=== PATIENT | female | born 1940 | race Caucasian/White ===

== ENCOUNTER 2020-08-03 14:20 | Inpatient (IN) | payer OTHER ==
[2020-08-03] VITALS (26 sets, daily range): BP systolic 56–107; BP diastolic 27–70
[~2020-08-03] VITALS: Ht 170.2 cm; Wt 58.4 kg
--- NOTE | ~2020-08-03 | EMS ---
[address] [address] EMS Patient Care Report Name: SANDRA PIERRE Room #: REG BALDEV Dudley#: [id number] Admission: 08/03/20 Attend Phys: Discharge: Date of : 38 Report #: [id number] THIS REPORT FOR: //name// Report Transmitted: 08/03/2020 15:15 EMS Care Summary [facility] MED-ACT Incident [id number] @ 08/03/2020 13:29 Incident Location [address] [place] [address] Patient SANDRA PIERRE Female, 80 Years 1940 Patient Address [address] [place] [address] Patient History Hypertension (HTN),Stroke/CVA,Parkinson's Disease,Pneumonia,Novel Coronavirus (COVID-19), Patient Allergies No known allergies, Patient Medications Simvastatin, Alprazolam, ASA, Carvedilol, Lisinopril, Chief Complaint "her BP is low and she is not responding normally" Disposition Transported No Lights/[place] Reason Breathing Problem Transported To [facility] Narrative Arrive at a shelter to find the pt laying supine in her bed being assessed by S47 with staff in the room. Staff reports that the pt is here to recover [facility] [address] [place] [address] EMS Patient Care Report Name: SANDRA PIERRE Room #: REG Luis Enrique#: [id number] Admission: 08/03/20 Attend Phys: Discharge: Date of : 38 Report #: [id number] from covid 19. They say that the pt got covid 19 before arriving at this facility which was the 18 of July. Staff does not know the exact date that the pt contracted the virus. Staff says that the pt's stroke left her with some disabilities and she normally will say some words but she is not oriented to person place and time. Staff says that last night the pt became much less responsive and her BP was lower than normal. Staff says that they were able to get a BP of 78 systolic so they called 911. Staff says that the pt just had a massive BM that they cleaned up just prior to EMS arrival. VS, exam, ECG and 12 lead done. Pt is on O2 at 2LPM and she is transferred to EMS O2 at 4LPM. Pt moved to cot and secured and taken to ambulance. IV started with fluid bolus. BG and temp also taken. Pt's eye's are spontaneously open but not reactive. Pt not responding to verbal or sternal rub. She is breathing rapidly at about 40 breaths per minute. VS and ECG monitored and biocom to [facility] with no orders. Tx without incident. Pt taken to ER room 11 and report to RN and MD at bedside and care transferred. Initial Vitals @13:44P: 116,UT Suspected: false @14:10P: 113,R: 40,GCS: 6,Glucose: 197,SpO2: 93, @13:44P: 100,R: 40,GCS: 6,Temp: 98.1F,SpO2: 93,UT Suspected: false Assessments @14:00MENTAL:SKIN:Cold,HEENT:Eyes: Left Pupil: 3-mm,Eyes: Right Pupil: 3-mm,Head/Face: No Abnormalities,Neck/Airway: No Abnormalities,LUNG SOUNDS:General: Diarrhea,ABDOMEN:General: Diarrhea,PELVIS//GI:EXTREMITIES:Left Leg: Edema,Right Leg: Edema,Left Arm: No Abnormalities,Right Arm: No Abnormalities,PULSE:NEURO:No Abnormalities, Impression Hypotension Procedures @14:00Normal Saline (.9% NaCl) 250cc (22 ga) Site: Hand-RightResponse: UnchangedSucceeded@13:4412-Lead ECGResponse: UnchangedSucceeded Timeline 13:27,Call Received 13:27,Psap Call 13:29,Dispatched 13:30,En Route 13:37,On Scene 13:40,At Patient 13:44,BP: / M,PULSE: 100,RR: 40 R,SPO2: 93 Ox,ETCO2: ,BG: ,PAIN: ,GCS: 6, 13:44,12-Lead ECG,Response: UnchangedSucceeded, [facility] [address] [place] [address] EMS Patient Care Report Name: SANDRA PIERRE Room #: REG Luis Enrique#: [id number] Admission: 08/03/20 Attend Phys: Discharge: Date of : 38 Report #: [id number] 13:44,BP: / M,PULSE: 116,RR: R,SPO2: Ox,ETCO2: ,BG: ,PAIN: ,GCS: , 14:00,Normal Saline (.9% NaCl) 250cc 22 ga Site: Hand-Right,Response: UnchangedSucceeded, 14:04,Depart Scene 14:10,BP: / M,PULSE: 113,RR: 40 R,SPO2: 93 Ox,ETCO2: ,B,PAIN: ,GCS: 6, 14:13,At Destination 14:37,Call Closed Disclaimer v1.1 Copyright 2020 [employer] This EMS Care Summary contains data elements from the applicable legal record (which may be displayed differently). It is designed to provide pertinent information for the following purposes: continuity of care, clinical quality, and state data reporting. The complete legal record is available to ED staff and administrators of the receiving hospital in [email or web address]'s Patient Tracker. All data is provided "as is."
[2020-08-03 14:51] LABS: URINE BILIRUBIN NEGATIVE (Negative); URINE BLOOD 2+ (Negative); URINE CLARITY SL CLOUDY; URINE COLOR YELLOW; URINE GLUCOSE-RANDOM* NEGATIVE (Negative); URINE KETONES NEGATIVE (Negative); URINE NITRITE-REFLEX NEGATIVE (Negative); URINE PROTEIN (DIPSTICK) TRACE (Negative); URINE UROBILINOGEN 0.2 E.U./dl (0.2-1.0)
[2020-08-03 14:55] LABS: URINE LEUKOCYTES-REFLEX 3+ (Negative)
[2020-08-03 15:00] LABS: BE(vivo) -13.1 mmol/L (-2 to +3); HCO3 11.3 mmol/L (22.0-26.0); sO2 75.9 % (92.0-98.0)
[2020-08-03 15:01] LABS: PCO2 22.3 mmHg (35.0-45.0); PO2 42.6 mmHg (80.0-100.0); pH 7.321 (7.360-7.450)
[2020-08-03 15:08] LABS: BACTERIA-REFLEX 1-9 Few /HPF (None Seen); CRYSTALS None Seen /LPF (None Seen); FINE GRANULAR CASTS 0-3 Few /LPF (None Seen); MUCUS 4-6 Moderate strn/LPF (None Seen); SQUAMOUS >10 Many /LPF (0-3); URINE WBC-REFLEX >25 Many /HPF (0-5)
[2020-08-03 15:09] LABS: WBC CLUMPS Many (None Seen)
[2020-08-03 15:21] LABS: BE(vivo) -6.6 mmol/L (-2 to +3); HCO3 18.1 mmol/L (22.0-26.0); PCO2 33.3 mmHg (35.0-45.0); PO2 164.8 mmHg (80.0-100.0); pH 7.352 (7.360-7.450)
[2020-08-03] MEDS ORDERED: CLOPIDOGREL75 MG PO (15:38)
[2020-08-03] MEDS ORDERED: CARBIDOPA-LEVO1 EAC9 PO (15:39)
[2020-08-03] MEDS ORDERED: ATORVASTATIN CA80 MG PO (15:39)
[2020-08-03 16:15] LABS: ABSOLUTE NEUTROPHILS 13.6 thou/uL (1.4-8.2); RBC 4.02 mil/uL (4.20-5.00)
[2020-08-03 16:18] LABS: BASOPHILS 0.3 % (0.0-2.0); EOSINOPHILS 0.5 % (0.0-3.0); HEMOGLOBIN 11.4 gm/dL (12.0-15.0); LYMPHOCYTES 6.9 % (24.0-44.0); MCH 28.4 pg (26.0-34.0); MCHC 30.9 g/dL (28.0-37.0); MONOCYTES 8.6 % (1.0-8.0); PLATELET COUNT 213 thou/uL (150-400); POLYS 83.7 % (36.0-66.0); RDW 15.8 % (10.5-14.5); WBC 16.3 thou/uL (4.0-11.0)
[2020-08-03 16:25] LABS: CALCIUM 7.3 mg/dL (8.5-10.1); CREATININE 4.6 mg/dL (0.6-1.0); POTASSIUM 4.6 mmol/L (3.5-5.1)
--- NOTE | 2020-08-03 16:32 | NUR ---
CONSULTED TO PLACE A CENTRAL LINE FOR A PATIENT WITH LOW B/P AND AMS IN ER. VERBAL ORDER AND CONSENT PER MEDICAL NECESSITY. THE PATIENT DOES NOT RESPOND TO TEACHING. THE RIGHT IJ WAS WIDLEY PATENT. A #6F TRIPLE LUMEN CENTRAL LINE WAS PLACED PER HOSPITAL POLICY AFTER A BEDSIDE TIMEOUT WAS COMPLETED. THE 25CM LINE ADVANCED WITHOUT DIFFICULTY. A STAT CHEST XRAY CONFIRMED LINE IN ADEQUATE POSITION- LINE RELEASED FOR USE
[2020-08-03 16:36] LABS: DIRECT BILIRUBIN 0.2 mg/dL (<0.1-0.2); MAGNESIUM 2.6 mg/dL (1.8-2.4); PHOSPHORUS 6.1 mg/dL (2.6-4.7); TOTAL BILIRUBIN 0.7 mg/dL (0.2-1.0)
[2020-08-03 16:38] LABS: TROPONIN-I 0.79 ng/mL (<0.06)
[2020-08-03 17:27] LABS: URINE BILIRUBIN NEGATIVE (Negative); URINE BLOOD TRACE (Negative); URINE CLARITY CLEAR; URINE COLOR YELLOW; URINE GLUCOSE-RANDOM* NEGATIVE (Negative); URINE KETONES NEGATIVE (Negative); URINE LEUKOCYTES-REFLEX NEGATIVE (Negative); URINE NITRITE-REFLEX NEGATIVE (Negative); URINE PROTEIN (DIPSTICK) NEGATIVE (Negative); URINE UROBILINOGEN 0.2 E.U./dl (0.2-1.0)
[2020-08-03] MEDS ORDERED: SIMVASTATIN40 MG PO (19:16)
[2020-08-03] MEDS ORDERED: ALENDRONATE SOD35 MG PO (19:27)
--- NOTE | 2020-08-03 20:00 | NUR ---
Pt admitted to ICU room 242 from ED at 1945. Pt very lethargic, moans and withdraws to noxious stimuli, does not open eyes but does follow some simple commands. Monitor sinus tach, rates 104-116. Pt had very large liquid brown stool on arrival to unit. Kandace-area beginning to look slightly red and irritated. Fecal Management System placed. SBP 80-94, MAP 58-64 on Levophed 30 mcg/min. O2 sat 94-96% on 2 L canula. Pt's daughter called shortly after pt's arrival to unit and was updated on her mother's status. Sepsis explained to daughter and treatment plan outlined. Daughter given pt access code and phone number to ICU.
[2020-08-04] VITALS (121 sets, daily range): BP systolic 49–137; BP diastolic 22–87
[2020-08-04 00:53] LABS: CALCIUM 7.7 mg/dL (8.5-10.1); CREATININE 4.4 mg/dL (0.6-1.0); POTASSIUM 4.3 mmol/L (3.5-5.1)
[2020-08-04 09:35] LABS: CREATININE 4.1 mg/dL (0.6-1.0); POTASSIUM 4.5 mmol/L (3.5-5.1)
[2020-08-04 09:36] LABS: CALCIUM 7.9 mg/dL (8.5-10.1); TOTAL BILIRUBIN 0.7 mg/dL (0.2-1.0); TOTAL PROTEIN 5.4 g/dL (6.4-8.2)
[2020-08-04 10:59] LABS: HEMATOCRIT 39.6 % (37.0-47.0); HEMOGLOBIN 12.2 gm/dL (12.0-15.0); MCHC 30.9 g/dL (28.0-37.0); RBC 4.21 mil/uL (4.20-5.00); RDW 16.8 % (10.5-14.5); WBC 10.3 thou/uL (4.0-11.0)
--- NOTE | 2020-08-04 21:10 | NUR ---
PATIENT SLEEPING UPON ASSESSMENT. UNABLE TO GIVE NIGHT ORAL MEDS. PATIENT REFUSING TO SWALLOW MEDICATIONS. LAB CALLED WITH [facility], NEED TO OBTAIN CONSENT, PATIENT IS CONFUSED/NON-VERBAL WITH HX DEMENTIA.
[2020-08-05] VITALS (123 sets, daily range): BP systolic 64–137; BP diastolic 32–80
[2020-08-05 05:54] LABS: HEMATOCRIT 33.6 % (37.0-47.0); HEMOGLOBIN 10.5 gm/dL (12.0-15.0); MCH 28.7 pg (26.0-34.0); MCHC 31.3 g/dL (28.0-37.0); MCV 91.7 fL (80.0-100.0); PLATELET COUNT 223 thou/uL (150-400); RBC 3.66 mil/uL (4.20-5.00); RDW 15.5 % (10.5-14.5); WBC 14.6 thou/uL (4.0-11.0)
[2020-08-05 06:05] LABS: FIBRINOGEN 443.3 mg/dL (210-360); INR 1.2; PROTIME 12.1 Seconds (9.3-11.4)
[2020-08-05 06:09] LABS: ALBUMIN 1.7 g/dL (3.4-5.0); CALCIUM 6.7 mg/dL (8.5-10.1); DIRECT BILIRUBIN 0.2 mg/dL (<0.1-0.2); PHOSPHORUS 3.8 mg/dL (2.5-4.9); POTASSIUM 3.1 mmol/L (3.5-5.1); TOTAL BILIRUBIN 0.5 mg/dL (0.2-1.0)
[2020-08-05 06:10] LABS: CREATININE 2.4 mg/dL (0.6-1.0)
[2020-08-05 07:00] LABS: ABSOLUTE NEUTROPHILS 13.4 thou/uL (1.4-8.2); LARGE PLATELETS OCCASIONAL; NUCLEATED RBCS 1 /100WBC
[2020-08-05 07:01] LABS: TOXIC GRANULATION 1+
[2020-08-05 07:02] LABS: BURR CELLS 3+
[2020-08-05 07:05] LABS: SCHISTOCYTES RARE
--- NOTE | 2020-08-05 07:24 | EKG ---
[place] [address] [facility] [place] [address] ELECTROCARDIOGRAM REPORT Name: DAVID PIERREEN Room #: 242-P ADM IN M.R.#: [id number] Admission: 08/03/20 Attend Phys: Robinson Prieto MD Discharge: Date of : 38 Report #: [id number] [facility] ED Test Date: 2020-08-03 Test Time: 14:26:24 Pat Name: SANDRA PIERRE Department: Room: 242 Gender: F Boiler Testing Technician: EARNESTINE CRABTREE : 1940 Requested By: Ramon Marques Order Number: [id number] MD: Qamar Wheat Measurements Intervals [place] Rate: 99 P: 16 [place]: 122 QRS: -21 QRSD: 79 T: 77 QT: 348 QTc: 447 Interpretive Statements Sinus rhythm Borderline left axis deviation Borderline low voltage, extremity leads Baseline wander in lead(s) V2 No previous ECG available for comparison Electronically Signed On 08-05-2020 7:24:31 SOILS TECHNICIAN by Qamar Wheat [email or web address] <ELECTRONICALLY SIGNED> By: Qamar Wheat MD, [facility] 08/05/20 0724 1426 1426 Qamar Wheat MD, [facility] /EPI
--- NOTE | 2020-08-05 10:50 | NUR ---
Assumed care of pt at 0700.
--- NOTE | 2020-08-05 11:08 | NUR ---
80-year-old female with history of previous stroke, Parkinson's, hyperlipidemia. The patient was to be discharged from her skilled stay at [facility] where she came from to the ED. The patient has been admitted with Septic shock secondary to colitis, DUNCAN, Hypernatremia, Troponin elevation likely from Septic Shock, Parkinson's, History of past stroke. NOTE Patient is COVID 19 positive and will be started on antiviral therapy. Ashely Genevianca the daughter is listed as the next of kin at [phone]. Given patient was to be discharged and the daughter would like to look for another facility as she and her sister had concerns and the fact the patient was a skilled patient only. Introduced the role of CM and explained that CM will continue to follow for discharge needs. Daughter did have questions on Medicare replacement and did refer her to [facility].
--- NOTE | 2020-08-05 11:35 | NUR ---
WOUND CARE CONSULT; DISCUSSED SKIN STATUS W/ DIESEL TRUCK TECHNICIAN SAMEERA CONSULT PLACED FOR WOUND CARE, PER SAMEERA RN PT HAS NO WOUNDS BUT IS AT [place], TO MONITOR SKIN, TURNING Q HOURS, ETC, WILL DC CONSULT, ADVISED TO RECONSULT WOUND NURSE IF SKIN BREAKDOWN OCCURS DIESEL TRUCK TECHNICIAN AWARE
--- NOTE | 2020-08-05 14:13 | NUR ---
discuss amy castillo from [facility]. family would like to look into other skilled facility for dc. will cont following as needed for dc needs.
[2020-08-06] VITALS (82 sets, daily range): BP systolic 84–130; BP diastolic 37–61
[2020-08-06 05:46] LABS: MCH 28.8 pg (26.0-34.0); MCHC 32.1 g/dL (28.0-37.0); MCV 89.6 fL (80.0-100.0); RBC 3.13 mil/uL (4.20-5.00); RDW 15.2 % (10.5-14.5); WBC 13.5 thou/uL (4.0-11.0)
[2020-08-06 06:18] LABS: ALBUMIN 1.7 g/dL (3.4-5.0); CALCIUM 6.2 mg/dL (8.5-10.1); CREATININE 1.8 mg/dL (0.6-1.0); DIRECT BILIRUBIN 0.2 mg/dL (<0.1-0.2); MAGNESIUM 1.6 mg/dL (1.8-2.4); PHOSPHORUS 2.9 mg/dL (2.5-4.9); POTASSIUM 3.3 mmol/L (3.5-5.1); TOTAL BILIRUBIN 0.4 mg/dL (0.2-1.0); TOTAL PROTEIN 4.6 g/dL (6.4-8.2)
--- NOTE | 2020-08-06 10:53 | NUR ---
0930-KRYPTO TEXT TO RE:LOW K+ & MAG. NO PROTOCOL. TTRATING LEVO,KKEEPING MAP >/=60mmHG.--VW
--- NOTE | 2020-08-06 14:45 | NUR ---
FAXED CLINICAL UPDATE TO [facility] RECEIVED CONFIRMATION AND LEFT MSG WITH ANDRES IN ADM.
[2020-08-07] VITALS (53 sets, daily range): BP systolic 75–121; BP diastolic 29–72
--- NOTE | 2020-08-07 05:10 | NUR ---
see [employer] for assessments. Remains in Enhanced precautions. Pt lethargic, will awaken with nursing care, osmar po fluids-no S/S of aspiration, no cough, or fever. Respirations shallow-placed on 2l as 02sat 89-90 on RA. Ls-diminished. Cont on levophed-weaning off slowly to map >60. frequent small amounts of loose stool. Cont plan of care
--- NOTE | 2020-08-07 08:54 | NUR ---
ASSUMED CARE OF PT AT 0700. CALLED DAUGHTER BAUTISTA BACK AT 0853, THERE WAS NO ANSWER.
[2020-08-07 13:33] LABS: HEMATOCRIT 29.1 % (37.0-47.0); HEMOGLOBIN 9.1 gm/dL (12.0-15.0); MCH 28.1 pg (26.0-34.0); MCHC 31.2 g/dL (28.0-37.0); MCV 90.1 fL (80.0-100.0); RBC 3.23 mil/uL (4.20-5.00); RDW 15.6 % (10.5-14.5); WBC 14.6 thou/uL (4.0-11.0)
[2020-08-07 13:54] LABS: ALBUMIN 1.6 g/dL (3.4-5.0); CALCIUM 6.6 mg/dL (8.5-10.1); CREATININE 1.5 mg/dL (0.6-1.0); DIRECT BILIRUBIN 0.1 mg/dL (<0.1-0.2); MAGNESIUM 1.9 mg/dL (1.8-2.4); PHOSPHORUS 3.7 mg/dL (2.6-4.7); POTASSIUM 3.2 mmol/L (3.5-5.1); TOTAL BILIRUBIN 0.4 mg/dL (0.2-1.0); TOTAL PROTEIN 4.2 g/dL (6.4-8.2)
--- NOTE | 2020-08-07 16:06 | NUR ---
cm visited with daughter august via phone call, education on transition of care, snf, and ltc. " yes i have spoke with [employer] and [place] for mom in case she will need ltc. can send referral to [place] like to get mom closer to [place] in [place] or where mom from [place]."/august. education that will send referral but only certain facility will take covid positive pt. spoke with cm team for facility closer.( [facility], [facility] bot[facility] in [facility], [facility]. [facility]). will cont following as needed for dc needs.
[2020-08-08] VITALS (40 sets, daily range): BP systolic 73–122; BP diastolic 28–97
[2020-08-08 06:43] LABS: ALBUMIN 1.6 g/dL (3.4-5.0); CALCIUM 7.1 mg/dL (8.5-10.1); CREATININE 1.4 mg/dL (0.6-1.0); DIRECT BILIRUBIN 0.1 mg/dL (<0.1-0.2); POTASSIUM 3.3 mmol/L (3.5-5.1); TOTAL BILIRUBIN 0.4 mg/dL (0.2-1.0); TOTAL PROTEIN 4.2 g/dL (6.4-8.2)
[2020-08-09] VITALS (52 sets, daily range): BP systolic 76–142; BP diastolic 26–74
--- NOTE | 2020-08-09 06:41 | NUR ---
ASSUMED CARE AT 1900. PT DENIES PAIN OR NAUSEA. MODERATELY SOA WHILE TALKING, O2 SATS REMAINED IN UPPER 90'S ON 2L O2. TITRATED LEVOPHED OFF AT 2119, BP AND MAP STABLE OVERNIGHT, AFEBRILE. TPN STARTED. NO OTHER CONCERNS, PROGRESSING TOWARDS GOALS, POSSIBLY TRANSFER OUT OF ICU TODAY.
[2020-08-09 06:49] LABS: ALBUMIN 1.5 g/dL (3.4-5.0); CALCIUM 7.3 mg/dL (8.5-10.1); CREATININE 1.3 mg/dL (0.6-1.0); MAGNESIUM 1.7 mg/dL (1.8-2.4); PHOSPHORUS 4.2 mg/dL (2.5-4.9); POTASSIUM 3.1 mmol/L (3.5-5.1); TOTAL BILIRUBIN 0.3 mg/dL (0.2-1.0); TOTAL PROTEIN 3.9 g/dL (6.4-8.2)
--- NOTE | 2020-08-09 11:05 | NUR ---
Recommend final goal rate of TPN 65ml/hr.
--- NOTE | 2020-08-09 13:40 | NUR ---
SREE reviewed chart. Pt remains in the ICU. Pt is in Enhanced Isolation due to COVID. Pt is afebrile and on 2L of O2. Pt is on IV abx and IV steroids. Pt started on TPN. No weekend discharge planned. Pt may transfer out of ICU. Pt was admitted from [facility]. Pt's family wanting to move closer to [place] to be near family. SREE placed calls to several facilities: [facility]- Spoke with Aleksandra in admissions. Not sure if they would be able to accept pt if she needs LTC. CHARLENE ZAFAR AT [facility]- . Left voice message for [facility]- . Spoke with Taurus in admissions. [facility]- . Left voice message for Mike. [facility]- . Spoke with Amanda in admissions. SREE left voice message for Shraddha in admissions at [facility] to see if they are in network with pt's insurance. SREE spoke with pt's dtr, Ashely, via phone to provide update. Per Ashely, pt's first positive COVID test was around 07/03/2020. SREE is following to assist as needed with discharge planning.
[2020-08-09 16:23] LABS: HEMATOCRIT 28.3 % (37.0-47.0); MCH 28.2 pg (26.0-34.0); MCHC 31.7 g/dL (28.0-37.0); MCV 88.7 fL (80.0-100.0); PLATELET COUNT 249 thou/uL (150-400); RBC 3.19 mil/uL (4.20-5.00); RDW 15.7 % (10.5-14.5); WBC 15.9 thou/uL (4.0-11.0)
[2020-08-09 16:40] LABS: APTT 40.8 Seconds (24.5-32.8); INR 1.2; PROTIME 11.9 Seconds (9.3-11.4)
[2020-08-09 17:22] LABS: ABSOLUTE NEUTROPHILS 13.2 thou/uL (1.4-8.2)
--- NOTE | 2020-08-09 19:18 | NUR ---
ASSUMED CARE 0700. PT UP TO CHAIR W/PT @ 1030. TOLERATED WELL. POOR APPETITE CONTINUES. DOPPLER RESULTED W/R LEG THROMBUS. CT OF CHEST COMPLETE THIS EVENING. NO LEVO THIS SHIFT. HEPARIN GTT INITIATED. AFEBRILE. SMALL STOOL TODAY. TPN FOR NUTRITION.
[2020-08-09 23:35] LABS: HEMATOCRIT 28.6 % (37.0-47.0); HEMOGLOBIN 9.1 gm/dL (12.0-15.0)
[2020-08-10] VITALS (67 sets, daily range): BP systolic 81–126; BP diastolic 26–69
--- NOTE | 2020-08-10 01:34 | NUR ---
PTT drawn twice from line without results being able to be resulted. Stranding Machine Operator here now to draw PTT peripherally.
[2020-08-10 02:13] LABS: HEMATOCRIT 30.6 % (37.0-47.0); HEMOGLOBIN 9.7 gm/dL (12.0-15.0)
--- NOTE | 2020-08-10 02:56 | NUR ---
Still unable to result PTT after peripheral draw. Per protocol heparin will be held for one hour and rate decreased by 3 units/kg/hr (down to 12 units/kg/hr) Will repeat PTT in 6 hours. Pt shows no signs of bleeding at this time.
[2020-08-10 04:58] LABS: ALBUMIN 1.7 g/dL (3.4-5.0); CALCIUM 7.7 mg/dL (8.5-10.1); CREATININE 1.3 mg/dL (0.6-1.0); MAGNESIUM 2.1 mg/dL (1.8-2.4); PHOSPHORUS 3.4 mg/dL (2.5-4.9); POTASSIUM 3.5 mmol/L (3.5-5.1); TOTAL BILIRUBIN 0.4 mg/dL (0.2-1.0); TOTAL PROTEIN 4.3 g/dL (6.4-8.2)
--- NOTE | 2020-08-10 06:34 | NUR ---
No significant progress toward goals. BP remains soft, MAP intermittently 56-58, SBP < 90, but pt is within parameters much of the shift. Levophed not restarted. Heparin titrated per protocol, next PTT to be drawn at 0900 per lab.
[2020-08-10 09:31] LABS: HEMOGLOBIN 8.2 gm/dL (12.0-15.0); MCH 28.2 pg (26.0-34.0); MCHC 31.7 g/dL (28.0-37.0); MCV 88.9 fL (80.0-100.0); PLATELET COUNT 254 thou/uL (150-400); RBC 2.92 mil/uL (4.20-5.00); RDW 15.7 % (10.5-14.5); WBC 17.1 thou/uL (4.0-11.0)
--- NOTE | 2020-08-10 11:04 | NUR ---
ASSUMED CARE OF PT AT 0700 GI DOC AT BEDSIDE AT 1100, NO NEW ORDERS GIVEN
[2020-08-10 11:08] LABS: ABSOLUTE NEUTROPHILS 14.9 thou/uL (1.4-8.2)
[2020-08-10 11:09] LABS: ANISOCYTOSIS 1+
[2020-08-10 11:10] LABS: BURR CELLS 2+
[2020-08-10 17:36] LABS: HEMATOCRIT 29.5 % (37.0-47.0); HEMOGLOBIN 9.8 gm/dL (12.0-15.0)
[2020-08-10 18:22] LABS: PROTIME 11.1 Seconds (9.3-11.4)
[2020-08-10 18:23] LABS: D-DIMER 9.71 ug/mLFEU (0.19-0.50)
[2020-08-10 18:24] LABS: APTT 114.2 Seconds (24.5-32.8)
[2020-08-11] VITALS (53 sets, daily range): BP systolic 73–153; BP diastolic 32–113
--- NOTE | 2020-08-11 07:00 | NUR ---
No progress toward goals. Pt still refusing to eat, will usually take her meds crushed in pudding. No signs of bleeding throughout this shift. Pt had one moderate size liquid dark green stool. AAbdomen remains soft, non-tender, active bowel sounds. Urine output 600 cc for this shift. Levophed had to be titrated up to 6 mcg/min to maintain MAP >/= 65; pt still occasionally has MAP of 58. Pt bathed at 0430 after stooling, was tachycardic 110-118 afterwards despite resting.
[2020-08-11 07:49] LABS: HEMATOCRIT 24.9 % (37.0-47.0); MCH 28.3 pg (26.0-34.0); MCHC 32.3 g/dL (28.0-37.0); MCV 87.7 fL (80.0-100.0); PLATELET COUNT 226 thou/uL (150-400); RBC 2.84 mil/uL (4.20-5.00); RDW 14.8 % (10.5-14.5); WBC 22.5 thou/uL (4.0-11.0)
[2020-08-11 07:52] LABS: HEMOGLOBIN 8.1 gm/dL (12.0-15.0)
[2020-08-11 07:58] LABS: ALBUMIN 1.5 g/dL (3.4-5.0); CALCIUM 7.3 mg/dL (8.5-10.1); CREATININE 1.1 mg/dL (0.6-1.0); MAGNESIUM 1.9 mg/dL (1.8-2.4); PHOSPHORUS 2.7 mg/dL (2.5-4.9); TOTAL BILIRUBIN 0.4 mg/dL (0.2-1.0); TOTAL PROTEIN 3.5 g/dL (6.4-8.2)
--- NOTE | 2020-08-11 08:22 | NUR ---
ASSUMED CARE OF PT AT 0700. PT IS VERY SLEEPY AND IS NOT WANTING TO TAKE ANYTHING BUT WATER BY MOUTH SO GETTING HER TO TAKE HER ORAL MEDS IN PUDDING IS A CHALLENGE.
[2020-08-11 09:30] LABS: METAMYELOCYTES 2 %
[2020-08-11 09:31] LABS: MYELOCYTES 1 %
[2020-08-11 09:32] LABS: ANISOCYTOSIS 1+
[2020-08-11 09:33] LABS: OVALOCYTES FEW
--- NOTE | 2020-08-11 21:50 | NUR ---
AT 2044 CALLED REPORT TO YASMANI QUIROGA ON [address] TO TRANFER PATINE TO ROOM 435. REPORT GIVEN AND LET NURSE KNOW IF THERE IS A STAUS CHANGE TO PLEASE CALL NEVILLE TO MAKE HER AWARE. TRANFERED PT TO 435 AT 2144. HX GIVEN IN REPORT, PATEINT IS COMFORT MEASURES, CVC IS SALINE LOCKED. PATENT OPEND EYES IN ELEVATOR, OTHER ACOSTA SLEEPING, NO COMPLAINTS. BM TODAY 08/11/2020. PT REFUSEING TO EAT. LAST PRN MEDICATION FOR COMFPRT GIVEN AROUND 1700. INFORMED PATIENT OF LOCATION CHANGE, NO RESPONCE. NO BELONGINGS LEFT IN ICU ROOOM. CALLED PT DAUGHTER AND LEFT MESSAGE OF ROOM CHANGE AT 2054.
--- NOTE | 2020-08-12 05:25 | NUR ---
PT TRANSFERRED FROM ICU AT 2144. PLACED ON COMFORT CARE. MORPHINE AND LORAZEPAM AVAILABLE. SPOKE WITH DAUGHTER AND SHE AND HER SISTER WANT TO MAKE SURE PT IS COMFORTABLE AND TO USE MEDICATION NEEDED.
[2020-08-12 07:50] VITALS: BP 91/41
--- NOTE | 2020-08-12 10:41 | NUR ---
on-going ASSESSMENT: CM REVIEWED CHART. PT IS ON COMFORT MEASURES. CM REACHED OUT TO PATIENTS DAUGHTER BAUTISTA TO DISCUSS POSSIBLE DISCHARGE TO [facility]. SHE WAS TEARFUL STATING SHE DOES NOT WANT TO TRANSFER HER MOTHER ANYWHERE AT THIS TIME STATING SHE HAS BEEN THROUGH ENOUGH AND WISHES TO KEEP HER HERE AT [facility]. CM REACHED OUT TO DR. BRUNO. CM WILL CONTINUE TO FOLLOW, PLANS TO REMAIN HERE AND WILL REVISIT IN 1-2 DAYS.
--- NOTE | 2020-08-12 13:11 | NUR ---
PT ASSESSED AT START OF SHIFT. PT NONRESPONSIVE TO VERBAL STIMULI. APPEARS COMFORTABLE. DOES FURROW BROW WHEN TURNED Q2HRS. RESPIRATIONS VERY SHALLOW AND REGULAR. FAMILY DECLINING CONSULT W/ HOSPICE HOUSE AT THIS TIME.
--- NOTE | 2020-08-12 15:26 | NUR ---
[id number] WAS COMPLETED BY THIS UPSTAIRS MAID. I VISITED THE PATIENT IN ROOM 435 AND HAD PRAYER FOR HER. I CALLED HER DAUGHTER. SHE WAS VERY PLEASED HER MOTHER IS COMFORTABLE AND THAT I PRAYED FOR HER MOTHER AND FAMILY.
[2020-08-12 19:20] VITALS: BP 123/60
[2020-08-13 02:43] VITALS: BP 127/59
--- NOTE | 2020-08-13 06:43 | NUR ---
ASSUMED PT CARE AT SHIFT CHANGE. PT HAS A RIGHT IJ IV. PT IS AROUSABLE. PT RESPONDS WHEN HER NAME IS CALLED. TURNS PERFORMED ON PT. PT DENIES PAIN. FREQUENT CHECKS DONE ON PT.
--- NOTE | 2020-08-13 10:08 | NUR ---
THIS HEALTHCARE LIAISON COMMUNICATED WITH AND PROVIDED SUPPORT TO THE DAUGHTER, BAUTISTA, TODAY.
--- NOTE | 2020-08-13 13:59 | NUR ---
ON-GOING ASSESSMENT: CM REVIEWED CHART AND SPOKE WITH ATTENDING. ATTENDING STATING PT MAY BE MORE APPROPRIATE FOR HOSPICE HOUSE. MIKEY REACHED OUT TO PTS DAUGHTER BAUTISTA TO DISCUSS. SHE REPORTS SHE DOES NOT WANT TO CONTINUE TO MOVE HER MOTHER LOCATIONS AND THEY ARE REQUESTING THAT WE KEEP PATIENT HERE AT LEAST UNTIL WEDNESDAY AND SEE IF ANYTHING HAPPENS. IF PT THEN NEEDS TO BE MOVED THEY WOULD WANT HER TO GO TO [facility]. CM REACHED OUT TO [facility] AND SENT REFERRAL. THEY SPOKE WITH BEDSIDE RN AND FEEL PT IS APPROPRIATE AND WILL CONTINUE TO FOLLOW. [facility] STATING THEY HAVE BEDS OPEN AND SHOULD HAVE ONE OPEN ON WEDNESDAY IF NEEDED. PTS DAUGHTER REQUEST TO SPEAK TO ATTENDING. CM NOTIFIED ATTENDING AND PROVDED DAUGHTERS CONTACT INFO.
[2020-08-13 19:18] VITALS: BP 121/53
--- NOTE | 2020-08-13 20:29 | NUR ---
PT CARE ASSUMED AT 0700. DIORIENTED X4. PT SLEEPING MOST OF THE DAY AND HARD TO ARROUSE. MORPHINE GIVEN FOR AIRHUNGER. PICC LINE DRAWS AND FLUSHES. COMFORT CARE ORDERS COMPLIED. UPDATE GIVEN TO [facility] TODAY. PT QUALIFIES AND WILL NEED TO BE DISCUSSED WITH FAMILY. CALL LIGHT IN REACH. REPORT GIVEN TO ANGELA BROOKS.
[2020-08-14 02:59] VITALS: BP 181/83
--- NOTE | 2020-08-14 03:27 | NUR ---
ASSUMED PT CARE AT SHIFT CHANGE. PT IS ARROUSABLE BUT SLEEPS MOST OF THE SHIFT. PT IV IS IN THE PT'S RIGHT IJ - TRIPLE LUMEN. PATENT AND FLUSHES WELL. WHEN ASKED THE PT IF SHE WAS IN PAIN SHE DENIES BUT HER RESPIRATIONS ARE 14. I ASKED MY CHARGE TO ADMINISTER IV MORPHINE. Q2 TURNS DONE ON PT. PT HAS EDEMA ON BLE AND BUE. FREQUENT CHECKS DONE ON PT. WILL CONTINUE TO MONITOR.
[2020-08-14 07:15] VITALS: BP 136/56
--- NOTE | 2020-08-14 12:18 | NUR ---
ON-GOING ASSESSMENT: CM REVIEWED CHART AND SPOKE WITH PTS DAUGHTER BAUTISTA. SHE REPORTS SHE DISCUSSED WITH ATTENDING AND SHE UNDERSTANDS IF HER MOTHER IS STILL HERE ON WEDNESDAY SHE IS CONSIDERING GOING TO THE HOSPICE HOU[facility] BUT NOW WANTS TO LOOK INTO [facility] IT IS CLOSER. CM NOTIFIED LIASON AT [facility] AND SENT REFERRAL. SHWETHA [facility]AS[facility] CAME TO EVALUATE PATIENT AND FEELS SHE IS APPROPRAITE AND IS AWARE THEY DO NOT WANT HER MOVED UNTIL TOMORROW 08/15/20. SHWETHA WAS GOING TO REACH OUT TO FAMILY. MIKEY WILL CONTINUE TO FOLLOW TO ASSIST NEEDED.
--- NOTE | 2020-08-14 14:50 | NUR ---
ON-GOING ASSESSMENT: MIKEY REVIEWED CHART AND SPOKE WITH KATLYN MARTINEZ LIASON AT [facility] WHO CAME TO [facility] PATIENT AND REPORTS THEY CAN ACCEPT AT THE [facility]. SHE DISCUSSED WITH FAMILY THAT THEY HAVE A BED AVAILABLE TODAY AND PTS DAUGHTER/CHRISTOFER BAUM IS OK WITH TRANSFERRING THIS EVENING. [facility] REQUEST THAT AMBULANCE BE SET UP FOR 1830 AND DAUGHTER IS AGREEABLE. CM NOTIFIED ATTENDING. D/C SENIOR [employer]UX UNIX ENGINEER ARRANGING TRANSPORTATION AND [facility] FORM ON THE CHART. CM ALSO PLACED OUTSIDE DNR FORM ON THE CHART. BEDSIDE RN HAS THE NUMBER FOR REPORT. D/C SENIOR [employer]UX UNIX ENGINEER FAXED DISCHARGE ORDERS TO [facility]. MIKEY ALSO SPOKE WITH PATIENTS OTHER DAUGHTER PETER WHO IS AGREEABLE WITH PLAN. PLANS FOR PATIENT TO ADMIT TO [facility] THIS EVENING WITH TRANSPORTATION ARRANGED FOR 1830.
== END 2020-08-14 19:21 | disposition hospice, home (50) | DRG 871 ==
LOC: ER 14:20 → EROBS 18:17 → ICU 18:17 → 4S 08-12 00:57
PROVIDERS: Emergency Medicine; Internal Medicine; Nurse Practitioner Family; Specialist; ADMIT Internal Medicine; ATTEND Internal Medicine
PROC: 02HV33Z Insertion of Infusion Device into Superior Vena Cava, Percutaneous Approach (ICD-10-PCS; principal; 2020-08-03)
PROC: XW13325 Transfusion of Convalescent Plasma (Nonautologous) into Peripheral Vein, Percutaneous Approach, New Technology Group 5 (ICD-10-PCS; 2020-08-04)
PROC: XW033E5 Introduction of Remdesivir Anti-infective into Peripheral Vein, Percutaneous Approach, New Technology Group 5 (ICD-10-PCS; 2020-08-04)
PROC: 30233N1 Transfusion of Nonautologous Red Blood Cells into Peripheral Vein, Percutaneous Approach (ICD-10-PCS; 2020-08-10)
DX: A41.89 Other specified sepsis (principal); N17.0 Acute kidney failure with tubular necrosis; U07.1 COVID-19; G92 Toxic encephalopathy; J96.00 Acute respiratory failure, unspecified whether with hypoxia or hypercapnia; R65.21 Severe sepsis with septic shock; E43 Unspecified severe protein-calorie malnutrition; J12.82 Pneumonia due to coronavirus disease 2019; E87.0 Hyperosmolality and hypernatremia; A09 Infectious gastroenteritis and colitis, unspecified; I82.411 Acute embolism and thrombosis of right femoral vein; I82.431 Acute embolism and thrombosis of right popliteal vein; E86.0 Dehydration; E78.5 Hyperlipidemia, unspecified; K75.9 Inflammatory liver disease, unspecified; G20 Parkinson's disease; E11.65 Type 2 diabetes mellitus with hyperglycemia; I12.9 Hypertensive chronic kidney disease with stage 1 through stage 4 chronic kidney disease, or unspecified chronic kidney disease; K62.89 Other specified diseases of anus and rectum; F41.9 Anxiety disorder, unspecified; E11.22 Type 2 diabetes mellitus with diabetic chronic kidney disease; I95.9 Hypotension, unspecified; D64.9 Anemia, unspecified; R62.7 Adult failure to thrive; N18.30 Chronic kidney disease, stage 3 unspecified; Z66 Do not resuscitate; Z51.5 Encounter for palliative care; Z68.20 Body mass index [BMI] 20.0-20.9, adult; Z86.73 Personal history of transient ischemic attack (TIA), and cerebral infarction without residual deficits; Z86.16 Personal history of COVID-19; Z79.899 Other long term (current) drug therapy
CPT/HCPCS: 10078; 10102; 10204; 85076